=== PATIENT | female | born 1970 | race African-American/Black ===

== ENCOUNTER 2018-08-14 17:40 | Emergency (ER) | payer MEDICARE, OTHER ==
[~2018-08-14] VITALS: Ht 154.9 cm; Wt 106.1 kg
[~2018-08-14 17:40] MED LIST: ALBU2.5V8 IH; BUPR8TAB SL; FLUT100D IH; FURO-68 PO; HYDR-2145 PO; TIZA4CAP3 PO
--- NOTE | 2018-08-14 17:46 | ED.ADGEN ---
Past History Past Medical History: Asthma, Diabetes, Other Past Surgical History: Gastric Bypass, Hysterectomy Alcohol Use: None Drug Use: None Adult General Chief Complaint Chief Complaint "..I ate a bunch of snow crabs ... last night.. and I noticed my lip swelled up.. and I got itchy... this has never happen before.. I love snow crab meat....but my lips are still swollen today.... I did take some benadryl about 5 hrs.. ago..." [facility] HPI Patient is a 48 year old female who presents with above hx with complaints itching, itching throat, swelling, generalized pruritus, and mild wheeze. Onset of symptoms occurred after eating his legs. Patient is ever had an allergic reactions to iodine or seafoods prior. Patient does have a history of diabetes or artery disease and hypertension. Patient normally follows Dr. Cabello. No other new meds or personal hygiene products. No recent travel. No history immunosuppression. No specific ill contacts. Patient denies use of LISBET inhibitor. Review of Systems Review of Systems Constitutional: Denies fever or chills [] Eyes: Denies change in visual acuity, redness, or eye pain [] HENT: Denies nasal congestion or sore throat []complaints of swollen lips Respiratory: Denies cough or shortness of breath []. Complains of a mild wheeze Cardiovascular: No additional information not addressed in HPI [] GI: Denies abdominal pain, nausea, vomiting, bloody stools or diarrhea [] : Denies dysuria or hematuria [] Musculoskeletal: Denies back pain or joint pain [] Integument: Complaints of pruritus Neurologic: Denies headache, focal weakness or sensory changes [] Endocrine: Denies polyuria or polydipsia [] All other systems were reviewed and found to be within normal limits, except as documented in this note. Family History Family History Noncontributory -history diabetes- hypertension Current Medications Current Medications Current Medications Medications (Trade) Dose Ordered Sig/Theresa Start Time Stop Time Status Last Admin Dose Admin Albuterol Sulfate (Ventolin Hfa Inhaler) 2 puff 1X ONCE 08/14/18 18:30 08/14/18 18:31 DC 08/14/18 18:46 2 PUFF Diphenhydramine HCl (Benadryl) 50 mg 1X ONCE 08/14/18 18:30 08/14/18 18:31 DC 08/14/18 18:46 50 MG Famotidine (Pepcid Vial) 20 mg 1X ONCE 08/14/18 18:30 08/14/18 18:31 DC 08/14/18 18:47 20 MG Magnesium Hydroxide (Milk Of Magnesia) 2,400 mg 1X ONCE 08/14/18 18:30 08/14/18 18:31 DC 08/14/18 18:46 2,400 MG Methylprednisolone Sodium Succinate (SOLU-Medrol 125MG VIAL) 125 mg 1X ONCE 08/14/18 18:30 08/14/18 18:31 DC 08/14/18 18:47 125 MG Allergies Allergies Allergies Coded Allergies Type Severity Reaction Last Updated Verified ketorolac Allergy Severe throat closes. 02/26/14 Yes Physical Exam Physical Exam Constitutional: no acute distress, non-toxic appearance. [] HENT: Normocephalic, atraumatic, bilateral external ears normal, oropharynx moist, no oral exudates, nose swollen turbinates with clear rhinorrhea. Swollen lips Eyes: PERRLA, EOMI, conjunctiva normal, no discharge. [] Neck: Normal range of motion, no tenderness, supple, no stridor. [] Cardiovascular:Heart rate regular rhythm, no murmur [] Lungs & Thorax: Bilateral breath sounds equal with few scattered wheezes auscultation [] Abdomen: Bowel sounds are proactive, soft, no tenderness, no masses, no pulsatile masses. Obese Skin: Warm, dry, no erythema, no rash. [] But does complain of pruritus Back: No tenderness, no CVA tenderness. [] Extremities: No tenderness, no cyanosis, no clubbing, ROM intact, equal edema. [ ] Neurologic: Alert and oriented X 3, normal motor function, normal sensory function, no focal deficits noted. [] Psychologic: Affect anxious, judgement normal, mood normal. [] Current Patient Data Vital Signs Vital Signs Date Time Temp Pulse Resp B/P (MAP) Pulse Ox O2 Delivery O2 Flow Rate FiO2 08/14/18 19:33 98 18 148/87 (107) 97 Room Air 08/14/18 18:28 97.9 EKG EKG [] Radiology/Procedures Radiology/Procedures [] Course & Med Decision Making Course & Med Decision Making Pertinent Labs and Imaging studies reviewed. (See chart for details). Patient to avoid further intake as no crab legs. Avoid other seafoods or use very cautiously. Patient also may have developed that iodine allergy. Patient take Benadryl 50 mg up 4 times a day. Patient take Zantac 50 mg twice day. Patient uses MDI 2 puffs 4 times a day. Patient take prednisone 50 mg a day. Patient follow-up primary care. Patient return if any concerns. [] Final Impression Final Impression 1. Allergic reaction to Snow crab meat intake. 2. History of hypertension 3. History of diabetes Dragon Disclaimer Dragon Disclaimer This electronic medical record was generated, in whole or in part, using a voice recognition dictation system. Neverware Disclaimer This chart was dictated in whole or in part using Voice Recognition software in a busy, high-work load, and often noisy Emergency Department environment. It may contain unintended and wholly unrecognized errors or omissions. Discharge Summary Visit Information Final Diagnosis Problems Medical Problems: (1) Allergic Status: Acute Brief Hospital Course Allergies Allergies Coded Allergies Type Severity Reaction Last Updated Verified ketorolac Allergy Severe throat closes. 02/26/14 Yes Vital Signs Vital Signs Date Time Temp Pulse Resp B/P (MAP) Pulse Ox O2 Delivery O2 Flow Rate FiO2 08/14/18 19:33 98 18 148/87 (107) 97 Room Air 08/14/18 18:28 97.9 Brief Hospital Course Ms. Shafer is a 48 old female who presented with suspect allergic reaction to ingestion Snow Crabs last night. Discharge Information Condition at Discharge: Improved, Stable Disposition/Orders: D/C to Home Dischare Medications Current Medications Albuterol Sulfate (Ventolin Hfa Inhaler) 2 puff 1X ONCE INH Last administered on 08/14/18at 18:46; Admin Dose 2 PUFF; Start 08/14/18 at 18:30; Stop 08/14/18 at 18:31; Status DC Diphenhydramine HCl (Benadryl) 50 mg 1X ONCE PO Last administered on at 18:46; Admin Dose 50 MG; Start 08/14/18 at 18:30; Stop 08/14/18 at 18:31; Status DC Methylprednisolone Sodium Succinate (SOLU-Medrol 125MG VIAL) 125 mg 1X ONCE IV Last administered on 08/14/18at 18:47; Admin Dose 125 MG; Start 08/14/18 at 18: 30; Stop 08/14/18 at 18:31; Status DC Famotidine (Pepcid Vial) 20 mg 1X ONCE IVP Last administered on 08/14/18at 18: 47; Admin Dose 20 MG; Start 08/14/18 at 18:30; Stop 08/14/18 at 18:31; Status DC Magnesium Hydroxide (Milk Of Magnesia) 2,400 mg 1X ONCE PO Last administered on 08/14/18at 18:46; Admin Dose 2,400 MG; Start 08/14/18 at 18:30; Stop 08/14/18 at 18:31; Status DC Active Scripts Active Zantac (Ranitidine Hcl) 150 Mg Tablet 150 Mg PO TWICE A DAY X 10 Days Prednisone 50 Mg Tablet 50 Mg PO DAILY 5 Days Reported Buprenorphine Hcl 8 Mg Tab.subl 4 Mg SL PRN Q4HRS PRN Flovent 100MCG Diskus (Fluticasone Propionate) 100 Mcg Disk.w.dev 2 Puff IH BID PRN Proair Hfa Inhaler (Albuterol Sulfate) 8.5 Gm Hfa.aer.ad 2 Puff IH PRN Q4-6HRS Zanaflex (Tizanidine HCl) 4 Mg Capsule 4 Mg PO HS PO MCKEON MD Aug 14, 2018 17:46
[2018-08-14] MEDS ORDERED: PRED50TA PO (18:13)
[2018-08-14] MEDS ORDERED: RANI150T21 PO (18:13)
[2018-08-14] MEDS ORDERED: methylPREDNISolone SOD SUCC PF 125 MG/2 ML VIAL. IV ONE (18:30)
[2018-08-14] MEDS ORDERED: diphenhydrAMINE HCL 25 MG CAPSULE PO ONE (18:30)
[2018-08-14] MEDS ORDERED: FAMOTIDINE 20 MG/2 ML VIAL IVP ONE (18:30)
[2018-08-14] MEDS ORDERED: ALBUTEROL SULFATE 8GM INHALER. INH ONE (18:30)
[2018-08-14] MEDS ORDERED: MAGNESIUM HYDROXIDE 2,400 MG/30 ML ORAL.SUSP. PO ONE (18:30)
[2018-08-14 19:33] VITALS: BP 148/87
== END 2018-08-14 19:43 | disposition home or self-care (01) ==
LOC: ER 17:40
DX: T78.1XXA Other adverse food reactions, not elsewhere classified, initial encounter (principal); I10 Essential (primary) hypertension; E11.9 Type 2 diabetes mellitus without complications; J45.909 Unspecified asthma, uncomplicated; Z98.84 Bariatric surgery status; Z88.8 Allergy status to other drugs, medicaments and biological substances; X58.XXXA Exposure to other specified factors, initial encounter
CPT/HCPCS: 94640; 96374; 96375; 99283; J2930; J3490; J7613; Q0163

== ENCOUNTER 2019-05-14 17:16 | Emergency (ER) | payer MEDICARE, OTHER ==
[~2019-05-14] VITALS: Ht 152.4 cm; Wt 98.4 kg
[~2019-05-14 17:16] MED LIST changes: +PRED50TA PO; +RANI-376 PO
[2019-05-14 17:22] VITALS: BP 154/57
--- NOTE | 2019-05-14 17:36 | PHYS DOC ---
Past History Past Medical History: Asthma, Diabetes, Other Additional Past Medical Histor: pain management Past Surgical History: Gastric Bypass, Hysterectomy Smoking: Non-smoker Alcohol Use: None Drug Use: None Adult General Chief Complaint Chief Complaint: FINGER INJURY HPI HPI Patient is a 49-year-old female presents complaining of right, dominant, small finger pain. At approximately 1545 yesterday she was letting her sister's dogs out, as was a new house, she tripped over an unexpected obstruction. She landed on her hand. Increased pain with movement. She has taken 2 separate doses of ibuprofen, 800 mg which improved the discomfort while it is on board. Most r ecent dosing was approximately an hour prior to arrival. No numbness or tingling. Pain is moderate in intensity. No radiation of the discomfort. Previous injury to that hand or wrist.[] Review of Systems Review of Systems Constitutional: Denies fever or chills [] Eyes: Denies change in visual acuity, redness, or eye pain [] HENT: Denies nasal congestion or sore throat [] Respiratory: Denies cough or shortness of breath [] Cardiovascular: No chest pain or palpitations[] GI: Denies abdominal pain, nausea, vomiting, bloody stools or diarrhea [] : Denies dysuria or hematuria [] Musculoskeletal: Denies back pain, see history of present illness[] Integument: Denies rash or skin lesions [] Neurologic: Denies headache, focal weakness or sensory changes [] Endocrine: Denies polyuria or polydipsia [] All other systems were reviewed and found to be within normal limits, except as documented in this note. Allergies Allergies Allergies Coded Allergies Type Severity Reaction Last Updated Verified ketorolac Allergy Severe throat closes. 02/26/14 Yes Physical Exam Physical Exam Constitutional: Well developed, well nourished, no acute distress, non-toxic appearance. [] HENT: Normocephalic, atraumatic, bilateral external ears normal, oropharynx moist, no oral exudates, nose normal. [] Eyes: PERRLA, EOMI, conjunctiva normal, no discharge. [] Neck: Normal range of motion, no tenderness, supple, no stridor. [] Cardiovascular:Heart rate regular rhythm, no murmur [] Lungs & Thorax: Bilateral breath sounds clear to auscultation [] Abdomen: Not examined[] Skin: Warm, dry, no erythema, no rash. [] Back: No tenderness, no CVA tenderness. [] Extremities: Right hand, small finger, tenderness to palpation of the middle and proximal phalanges. FDS, FDP, and extensor mechanisms are intact. Capillary refills less than 2 seconds. She is distally neurovascularly intact. No rotational deformity with bending at the MCP joint. Full active range of motion. A joint above and a joined below were evaluated and were normal. The other 3 extremities show: No tenderness, no cyanosis, no clubbing, ROM intact, no edema. [] Neurologic: Alert and oriented X 3, normal motor function, normal sensory function, no focal deficits noted. [] Psychologic: Affect normal, judgement normal, mood normal. [] EKG EKG [] Radiology/Procedures Radiology/Procedures X-ray of the right small finger shows no evidence of a fracture or dislocation[] Course & Med Decision Making Course & Med Decision Making Pertinent Labs and Imaging studies reviewed. (See chart for details) ED course: Patient arrived, was placed in bed, and tolerated exam well she was transported to and from radiology with any complications. After return the imaging findings, these were discussed with the patient. She was bill taped for comfort. She was distally neurologic and vascularly intact after bill taping. She was discharged in improved condition with all questions answered. Medical decision making: There is no evidence of a fracture or dislocation. No evidence of neurologic or vascular compromise.[] Dragon Disclaimer Dragon Disclaimer This electronic medical record was generated, in whole or in part, using a voice recognition dictation system. Departure Departure: Impression: Primary Impression: Injury of little finger Disposition: HOME, SELF-CARE Condition: IMPROVED Referrals: URBANO VALENCIA (PCP) Follow-up in 2 days Patient Instructions: Bill Taping, Finger Sprain Additional Instructions: Follow-up with your regular doctor in 2 days. Apply warm compresses for 15 minutes at a time, at least 4 times a day. Return to the ER if worsening pain, numbness, or any other concerns. Scripts Meloxicam (MELOXICAM) 7.5 Mg Tablet 7.5 MG PO DAILY for PAIN, #20 TAB Prov: CHAPITO KING DO 05/14/19 CHAPITO KING DO May 14, 2019 17:36
[2019-05-14] MEDS ORDERED: MELO7.5T29 PO (17:51)
--- NOTE | 2019-05-14 19:24 | RAD ---
Study: FINGER(S) RIGHT Indication: Fall. Right little finger pain. Comparison: None. Findings: No acute fracture or malalignment seen to involve the little finger. Intact osseous structures elsewhere. Osseous mineralization is within normal limits. Maintained joint spaces. No retained radiopaque foreign body. Impression: No acute osseous abnormality. Electronically signed by: COMPA FREY MD (05/14/2019 7:21 PM) [facility]
== END 2019-05-14 18:00 | disposition home or self-care (01) ==
LOC: ER 17:16
DX: S69.91XA Unspecified injury of right wrist, hand and finger(s), initial encounter (principal); J45.909 Unspecified asthma, uncomplicated; E11.9 Type 2 diabetes mellitus without complications; Z98.84 Bariatric surgery status; Z88.8 Allergy status to other drugs, medicaments and biological substances; W18.09XA Striking against other object with subsequent fall, initial encounter; Y93.89 Activity, other specified; Y92.89 Other specified places as the place of occurrence of the external cause; Y99.8 Other external cause status
CPT/HCPCS: 73140; 99284

== ENCOUNTER 2019-06-27 16:27 | Emergency (ER) | payer MEDICARE, OTHER ==
[~2019-06-27] VITALS: Ht 152.4 cm; Wt 98.4 kg
[~2019-06-27 16:27] MED LIST changes: +MELO7.5T29 PO
[2019-06-27 16:40] VITALS: BP 151/78
--- NOTE | 2019-06-27 17:55 | PHYS DOC ---
Past History Past Medical History: Asthma, Diabetes, Other Additional Past Medical Histor: pain management Past Surgical History: Cholecystectomy, Gastric Bypass, Hysterectomy, Other Additional Past Surgical Histo: HERNIA REPAIR, BREAST REDUCTION Smoking: Non-smoker Alcohol Use: None Drug Use: None Adult General Chief Complaint Chief Complaint: THUMB HPI HPI Patient is a 49-year-old female who presents with complaint right thumb injury that occurred at home early this morning. Patient states that she fell and hyperextended her thumb on impact. Patient states that she's taken some ibuprofen but still has pain. She states that pain is about an 8 out of 10 when she moves her thumb but at this time is only very mild at rest. She denies any other injuries.[] Review of Systems Review of Systems Constitutional: Denies fever or chills [] Respiratory: Denies cough or shortness of breath [] Cardiovascular: No additional information not addressed in HPI [] Musculoskeletal: Positive right thumb pain [] Integument: Denies rash or skin lesions [] Allergies Allergies Allergies Coded Allergies Type Severity Reaction Last Updated Verified ketorolac Allergy Severe throat closes. 02/26/14 Yes Physical Exam Physical Exam Constitutional: Well developed, well nourished, no acute distress, non-toxic appearance. [] Cardiovascular: Regular rate and rhythm[] Lungs & Thorax: Bilateral breath sounds clear to auscultation [] Extremities: His emanation of right hand demonstrates soft tissue swelling at the first MCP joint with tenderness to palpation and decreased range of motion. [] Neurologic: Alert and oriented X 3, no focal deficits noted. [] Current Patient Data Vital Signs Vital Signs Date Time Temp Pulse Resp B/P (MAP) Pulse Ox O2 Delivery O2 Flow Rate FiO2 06/27/19 16:40 98.6 73 20 100 Room Air EKG EKG [] Radiology/Procedures Radiology/Procedures [] Impressions: PROCEDURE: FINGER(S) RIGHT EXAM: PA view right hand, oblique and lateral views right thumb DATE: 06/27/2019 4:48 PM INDICATION: Right thumb injury COMPARISON: 05/14/2019 FINDINGS/ IMPRESSION: 1. No evidence of acute fracture or dislocation. 2. Joint spaces are preserved without significant degenerative/proliferative change. 3. Atherosclerotic vascular calcifications are seen. 4. Mild soft tissue swelling about the left thumb MCP joint. Electronically signed by: Lorenzo Mendoza MD (06/27/2019 5:59 PM) [facility] Course & Med Decision Making Course & Med Decision Making Pertinent Labs and Imaging studies reviewed. (See chart for details) [] Dragon Disclaimer Dragon Disclaimer This electronic medical record was generated, in whole or in part, using a voice recognition dictation system. Departure Departure: Impression: Primary Impression: Sprain of right thumb Disposition: HOME, SELF-CARE Condition: STABLE Referrals: URBANO VALENCIA (PCP) Patient Instructions: Finger Sprain Scripts Diclofenac Sodium (DICLOFENAC SODIUM) 50 Mg Tablet.dr 1 TAB PO BID PRN for PAIN, #20 TAB Prov: TRISHA MUNSON Jr. DO 06/27/19 Problem Qualifiers Primary Impression: Sprain of right thumb Encounter type: initial encounter Sprain of finger site: metacarpophalangeal joint Qualified Codes: S63.641A - Sprain of metacarpophalangeal joint of right thumb, initial encounter TRISHA MUNSON Jr. DO Jun 27, 2019 17:55
--- NOTE | 2019-06-27 18:01 | RAD ---
EXAM: PA view right hand, oblique and lateral views right thumb DATE: 06/27/2019 4:48 PM INDICATION: Right thumb injury COMPARISON: 05/14/2019 FINDINGS/ IMPRESSION: 1. No evidence of acute fracture or dislocation. 2. Joint spaces are preserved without significant degenerative/proliferative change. 3. Atherosclerotic vascular calcifications are seen. 4. Mild soft tissue swelling about the left thumb MCP joint. Electronically signed by: Lorenzo Mendoza MD (06/27/2019 5:59 PM) [facility]
[2019-06-27] MEDS ORDERED: DICL50TA4 PO (18:06)
== END 2019-06-27 18:24 | disposition home or self-care (01) ==
LOC: ER 16:27
DX: S63.641A Sprain of metacarpophalangeal joint of right thumb, initial encounter (principal); J45.909 Unspecified asthma, uncomplicated; E11.9 Type 2 diabetes mellitus without complications; Z98.84 Bariatric surgery status; Z88.8 Allergy status to other drugs, medicaments and biological substances; W18.39XA Other fall on same level, initial encounter; Y93.89 Activity, other specified; Y92.098 Other place in other non-institutional residence as the place of occurrence of the external cause; Y99.8 Other external cause status
CPT/HCPCS: 73140; 99284

== ENCOUNTER 2020-10-22 11:36 | Emergency (ER) | payer MEDICARE, OTHER ==
[~2020-10-22] VITALS: Ht 152.4 cm; Wt 100.0 kg
[~2020-10-22 11:36] MED LIST changes: +DICL50TA4 PO; -FLUT100D IH; +FLUT100D2 IH
[2020-10-22 11:59] VITALS: BP 138/87
--- NOTE | 2020-10-22 12:30 | PHYS DOC ---
Past History Past Medical History: Asthma, Diabetes, Other Additional Past Medical Histor: pain management Past Surgical History: Cholecystectomy, Gastric Bypass, Hysterectomy, Other Additional Past Surgical Histo: HERNIA REPAIR, BREAST REDUCTION Smoking: Non-smoker Alcohol Use: None Drug Use: None Adult General Chief Complaint Chief Complaint: LACERATION/AVULSION HPI HPI Patient is a 50-year-old female patient presented to the ED today with left middle finger laceration that occurred yesterday at 9 PM. Patient states she cut herself accidentally with a box liner. She is right-handed. Review of Systems Review of Systems Constitutional: Denies fever or chills [] Musculoskeletal: Denies back pain or joint pain [] Integument: Left middle finger laceration Neurologic: Denies headache, focal weakness or sensory changes [] All other systems were reviewed and found to be within normal limits, except as documented in this note. Allergies Allergies Allergies Coded Allergies Type Severity Reaction Last Updated Verified ketorolac Allergy Severe throat closes. 02/26/14 Yes Physical Exam Physical Exam Constitutional: Well developed, well nourished, no acute distress, non-toxic appearance. [] Skin: Distal end of the left middle finger lateral aspect/ulnar aspect with a laceration approximately 2 cm long and L-shaped. There is no obvious tendon involvement. Patient able to flex and extend the finger at the MIP PIP and DIP joints. Adequate immediate sensation. +2 left radial pulse. Cap refill less than 2 seconds to the left mid to finger Back: No tenderness, no CVA tenderness. [] Extremities: No tenderness, no cyanosis, no clubbing, ROM intact, no edema. [] Neurologic: Alert and oriented X 3, normal motor function, normal sensory function, no focal deficits noted. [] Psychologic: Affect normal, judgement normal, mood normal. [] Current Patient Data Vital Signs Vital Signs Date Time Temp Pulse Resp B/P (MAP) Pulse Ox O2 Delivery O2 Flow Rate FiO2 10/22/20 11:59 91 20 138/87 (104) 100 EKG EKG [] Radiology/Procedures Radiology/Procedures [] Heart Score C/O Chest Pain: N/A Risk Factors: Risk Factors: DM, Current or recent (<one month) smoker, HTN, HLP, family history of CAD, obesity. Risk Scores: Risk Factors: DM, Current or recent (<one month) smoker, HTN, HLP, family history of CAD, obesity. Course & Med Decision Making Course & Med Decision Making Pertinent Labs and Imaging studies reviewed. (See chart for details) This is a 50-year-old female patient with left middle finger laceration that was closed by me laceration occurred yesterday at 500 and and closed with Dermabond and Steri-Strips applied to the area. Wound care instructions and return precautions provided to patient Elena Disclaimer Dragon Disclaimer This electronic medical record was generated, in whole or in part, using a voice recognition dictation system. Departure Departure: Impression: Primary Impression: Laceration of finger of left hand Disposition: HOME / SELF CARE / HOMELESS Condition: STABLE Referrals: URBANO VALENCIA (PCP) follow up in 1-2 weeks as needed Patient Instructions: Fingertip Laceration Additional Instructions: You have left finger laceration that was closed with Dermabond and Steri-Strips. The Steri-Strips will fall off on their own. You can wash your hands once or twice a day. When the Steri-Strips fall off apply Neosporin to the laceration site twice a day for 7 days. Monitor the area for any signs of infection including but not limited to increased redness, warmth, yellow drainage from the area and return to the ED see your doctor. Problem Qualifiers Primary Impression: Laceration of finger of left hand Encounter type: initial encounter Finger: middle finger Damage to nail status: without damage Foreign body presence: without foreign body Q ualified Codes: S61.213A - Laceration without foreign body of left middle finger without damage to nail, initial encounter ANURAG KELLEY APRN October 22, 2020 12:30
== END 2020-10-22 12:39 | disposition home or self-care (01) ==
LOC: ER 11:36
DX: S61.213D Laceration without foreign body of left middle finger without damage to nail, subsequent encounter (principal); X58.XXXD Exposure to other specified factors, subsequent encounter
CPT/HCPCS: 99282